=== PATIENT | female | born 1950 | race Hispanic/Latino ===

== ENCOUNTER 2017-06-29 08:19 | Outpatient (CLI) | payer MEDICARE ==
--- NOTE | 2017-06-30 07:59 | Vascular Lab Report ---
LOWER EXTREMITY ARTERIAL DUPLEX: REASON FOR EXAM: Peripheral arterial disease left foot ulcer. COMMENTS ON THE RIGHT: Biphasic waveforms are seen distally. COMMENTS ON THE LEFT: Triphasic waveforms are seen proximally. Monophasic waveforms are seen distally. No flow seen in the mid SFA.. Block is noted throughout the SFA.. Findings are consistent with abnormal perfusion. Findings are inconsistent with the ability to heal distal wounds. IMPRESSION: LEFT:Occluded left SFA.
== END 2017-06-29 08:20 | disposition home or self-care (01) ==
LOC: VAS 08:19
PROVIDERS: ATTEND Internal Medicine
DX: L97.529 Non-pressure chronic ulcer of other part of left foot with unspecified severity (principal); I70.202 Unspecified atherosclerosis of native arteries of extremities, left leg

== ENCOUNTER 2017-07-03 08:09 | Outpatient (CLI) | payer MEDICARE ==
[2017-07-03] MEDS ORDERED: XYLOCAINE TOPICAL 4% TP ONE (08:58)
== END 2017-07-03 08:10 | disposition home or self-care (01) ==
LOC: WOUND 08:09
PROVIDERS: ATTEND Podiatrist
DX: I70.248 Atherosclerosis of native arteries of left leg with ulceration of other part of lower leg (principal); L97.822 Non-pressure chronic ulcer of other part of left lower leg with fat layer exposed; I70.202 Unspecified atherosclerosis of native arteries of extremities, left leg; L03.116 Cellulitis of left lower limb; I10 Essential (primary) hypertension; M19.90 Unspecified osteoarthritis, unspecified site; Z90.49 Acquired absence of other specified parts of digestive tract; Z90.710 Acquired absence of both cervix and uterus; F17.210 Nicotine dependence, cigarettes, uncomplicated; Z72.89 Other problems related to lifestyle
CPT/HCPCS: 11042; 87075; 87116; G0463

== ENCOUNTER 2017-07-10 12:59 | Outpatient (CLI) | payer MEDICARE ==
[2017-07-10] MEDS ORDERED: XYLOCAINE TOPICAL 4% TP ONE (13:12)
[2017-07-10] MEDS ORDERED: XYLOCAINE TOPICAL 2% 5ML TP ONE (13:12)
== END 2017-07-10 13:00 | disposition home or self-care (01) ==
LOC: WOUND 12:59
PROVIDERS: ATTEND Podiatrist
DX: I70.248 Atherosclerosis of native arteries of left leg with ulceration of other part of lower leg (principal); L97.822 Non-pressure chronic ulcer of other part of left lower leg with fat layer exposed; M19.90 Unspecified osteoarthritis, unspecified site; I10 Essential (primary) hypertension; F17.200 Nicotine dependence, unspecified, uncomplicated; Z90.710 Acquired absence of both cervix and uterus; Z72.89 Other problems related to lifestyle

== ENCOUNTER 2017-07-17 08:10 | Outpatient (CLI) | payer MEDICARE ==
[2017-07-17] MEDS ORDERED: XYLOCAINE TOPICAL 4% TP ONE ×2 (08:35→08:44)
[2017-07-17] MEDS ORDERED: XYLOCAINE TOPICAL 2% 5ML ONE (08:35)
[2017-07-17] MEDS ORDERED: XYLOCAINE TOPICAL 2% 5ML TP ONE (08:45)
[2017-07-17] MEDS ORDERED: AD OINTMENT TP ONE (09:04)
[2017-07-17] MEDS ORDERED: AD OINTMENT TP SCH (10:00)
== END 2017-07-17 08:11 | disposition home or self-care (01) ==
LOC: WOUND 08:10
PROVIDERS: ATTEND Podiatrist
DX: I70.248 Atherosclerosis of native arteries of left leg with ulceration of other part of lower leg (principal); L97.822 Non-pressure chronic ulcer of other part of left lower leg with fat layer exposed; I10 Essential (primary) hypertension; M19.90 Unspecified osteoarthritis, unspecified site; F17.200 Nicotine dependence, unspecified, uncomplicated; Z90.710 Acquired absence of both cervix and uterus; Z90.49 Acquired absence of other specified parts of digestive tract; Z72.89 Other problems related to lifestyle
CPT/HCPCS: A6250

== ENCOUNTER 2017-07-24 07:57 | Outpatient (CLI) | payer MEDICARE ==
[2017-07-24] MEDS ORDERED: XYLOCAINE TOPICAL 4% TP ONE ×2 (08:34→08:40)
== END 2017-07-24 07:58 | disposition home or self-care (01) ==
LOC: WOUND 07:57
PROVIDERS: ATTEND Podiatrist
DX: I70.248 Atherosclerosis of native arteries of left leg with ulceration of other part of lower leg (principal); L97.822 Non-pressure chronic ulcer of other part of left lower leg with fat layer exposed; I10 Essential (primary) hypertension; M19.90 Unspecified osteoarthritis, unspecified site; I70.202 Unspecified atherosclerosis of native arteries of extremities, left leg; F17.200 Nicotine dependence, unspecified, uncomplicated; Z90.49 Acquired absence of other specified parts of digestive tract; Z90.710 Acquired absence of both cervix and uterus

== ENCOUNTER 2017-07-31 07:53 | Outpatient (CLI) | payer MEDICARE ==
[2017-07-31] MEDS ORDERED: XYLOCAINE TOPICAL 4% TP ONE (08:21)
[2017-07-31] MEDS ORDERED: AD OINTMENT TP ONE (08:35)
[2017-07-31] MEDS ORDERED: AD OINTMENT TP SCH (10:00)
== END 2017-07-31 07:54 | disposition home or self-care (01) ==
LOC: WOUND 07:53
PROVIDERS: ATTEND Podiatrist
DX: I70.248 Atherosclerosis of native arteries of left leg with ulceration of other part of lower leg (principal); L97.822 Non-pressure chronic ulcer of other part of left lower leg with fat layer exposed; I10 Essential (primary) hypertension; M19.90 Unspecified osteoarthritis, unspecified site; F17.200 Nicotine dependence, unspecified, uncomplicated; Z90.710 Acquired absence of both cervix and uterus; Z90.49 Acquired absence of other specified parts of digestive tract; Z72.89 Other problems related to lifestyle
CPT/HCPCS: A6250

== ENCOUNTER 2017-08-07 07:50 | Outpatient (CLI) | payer MEDICARE ==
[2017-08-07] MEDS ORDERED: XYLOCAINE TOPICAL 4% TP ONE ×2 (08:23→10:15)
== END 2017-08-07 07:51 | disposition home or self-care (01) ==
LOC: WOUND 07:50
PROVIDERS: ATTEND Podiatrist
DX: I70.248 Atherosclerosis of native arteries of left leg with ulceration of other part of lower leg (principal); L97.822 Non-pressure chronic ulcer of other part of left lower leg with fat layer exposed; M19.90 Unspecified osteoarthritis, unspecified site; F17.200 Nicotine dependence, unspecified, uncomplicated; Z72.89 Other problems related to lifestyle; Z90.49 Acquired absence of other specified parts of digestive tract; Z90.710 Acquired absence of both cervix and uterus

== ENCOUNTER 2017-08-14 08:04 | Outpatient (CLI) | payer MEDICARE ==
[2017-08-14] MEDS ORDERED: XYLOCAINE TOPICAL 4% TP ONE ×2 (08:19→08:21)
== END 2017-08-14 08:05 | disposition home or self-care (01) ==
LOC: WOUND 08:04
PROVIDERS: ATTEND Podiatrist
DX: I70.248 Atherosclerosis of native arteries of left leg with ulceration of other part of lower leg (principal); L97.822 Non-pressure chronic ulcer of other part of left lower leg with fat layer exposed; I10 Essential (primary) hypertension; M19.90 Unspecified osteoarthritis, unspecified site; F17.200 Nicotine dependence, unspecified, uncomplicated; Z90.49 Acquired absence of other specified parts of digestive tract; Z90.710 Acquired absence of both cervix and uterus; Z72.89 Other problems related to lifestyle

== ENCOUNTER 2017-08-21 07:54 | Outpatient (CLI) | payer MEDICARE ==
[2017-08-21] MEDS ORDERED: XYLOCAINE TOPICAL 4% TP ONE (08:17)
[2017-08-21] MEDS ORDERED: AD OINTMENT TP ONE (08:41)
[2017-08-21] MEDS ORDERED: AD OINTMENT TP SCH (10:00)
== END 2017-08-21 07:55 | disposition home or self-care (01) ==
LOC: WOUND 07:54
PROVIDERS: ATTEND Podiatrist
DX: I70.248 Atherosclerosis of native arteries of left leg with ulceration of other part of lower leg (principal); L97.822 Non-pressure chronic ulcer of other part of left lower leg with fat layer exposed; M19.90 Unspecified osteoarthritis, unspecified site; I10 Essential (primary) hypertension; F17.200 Nicotine dependence, unspecified, uncomplicated; Z90.710 Acquired absence of both cervix and uterus; Z72.89 Other problems related to lifestyle
CPT/HCPCS: A6250

== ENCOUNTER 2017-08-28 07:59 | Outpatient (CLI) | payer MEDICARE ==
[2017-08-28] MEDS ORDERED: XYLOCAINE TOPICAL 4% TP ONE (08:22)
== END 2017-08-28 08:00 | disposition home or self-care (01) ==
LOC: WOUND 07:59
PROVIDERS: ATTEND Podiatrist
DX: I70.248 Atherosclerosis of native arteries of left leg with ulceration of other part of lower leg (principal); L97.822 Non-pressure chronic ulcer of other part of left lower leg with fat layer exposed; F17.210 Nicotine dependence, cigarettes, uncomplicated; M19.90 Unspecified osteoarthritis, unspecified site; I10 Essential (primary) hypertension; Z90.710 Acquired absence of both cervix and uterus

== ENCOUNTER 2017-09-04 07:54 | Outpatient (CLI) | payer MEDICARE ==
[2017-09-04] MEDS ORDERED: XYLOCAINE TOPICAL 4% TP ONE (08:10)
== END 2017-09-04 07:55 | disposition home or self-care (01) ==
LOC: WOUND 07:54
PROVIDERS: ATTEND Internal Medicine
DX: I70.248 Atherosclerosis of native arteries of left leg with ulceration of other part of lower leg (principal); L97.821 Non-pressure chronic ulcer of other part of left lower leg limited to breakdown of skin; I10 Essential (primary) hypertension; M19.90 Unspecified osteoarthritis, unspecified site; F17.200 Nicotine dependence, unspecified, uncomplicated; Z90.710 Acquired absence of both cervix and uterus; Z72.89 Other problems related to lifestyle

== ENCOUNTER 2017-09-11 07:56 | Outpatient (CLI) | payer MEDICARE ==
[2017-09-11] MEDS ORDERED: XYLOCAINE TOPICAL 4% TP ONE (08:09)
== END 2017-09-11 07:57 | disposition home or self-care (01) ==
LOC: WOUND 07:56
PROVIDERS: ATTEND Podiatrist
DX: I70.248 Atherosclerosis of native arteries of left leg with ulceration of other part of lower leg (principal); L97.822 Non-pressure chronic ulcer of other part of left lower leg with fat layer exposed; I10 Essential (primary) hypertension; M19.90 Unspecified osteoarthritis, unspecified site; F17.210 Nicotine dependence, cigarettes, uncomplicated; Z72.89 Other problems related to lifestyle